=== PATIENT | female | born 1950 | race Two or more races ===

== ENCOUNTER 2018-10-25 10:00 | Outpatient (CLI) | payer OTHER | END 2018-10-25 16:19 | disposition home or self-care (01) | LOC: MAMO-SONO 10:00 | DX: Z12.31 Encounter for screening mammogram for malignant neoplasm of breast (principal); Z87.898 Personal history of other specified conditions; E04.1 Nontoxic single thyroid nodule ==

== ENCOUNTER 2018-10-25 10:42 | Outpatient (CLI) | payer OTHER | END 2018-10-25 10:45 | disposition home or self-care (01) | LOC: NUCLEAR 10:42 | DX: M81.0 Age-related osteoporosis without current pathological fracture (principal); M85.80 Other specified disorders of bone density and structure, unspecified site ==

== ENCOUNTER 2021-03-26 10:13 | Outpatient (CLI) | payer OTHER | END 2021-03-26 10:30 | disposition home or self-care (01) | LOC: MAMO-SONO 10:13 | PROVIDERS: ATTEND General Practice | DX: R92.1 Mammographic calcification found on diagnostic imaging of breast (principal); Z12.31 Encounter for screening mammogram for malignant neoplasm of breast; N64.4 Mastodynia ==

== ENCOUNTER 2023-08-19 12:54 | Outpatient (CLI) | payer OTHER | END 2023-08-19 12:56 | disposition home or self-care (01) | LOC: NUCLEAR 12:54 | PROVIDERS: ATTEND General Practice | DX: M81.0 Age-related osteoporosis without current pathological fracture (principal); S82.042D Displaced comminuted fracture of left patella, subsequent encounter for closed fracture with routine healing ==

== ENCOUNTER 2023-10-07 07:25 | Outpatient (CLI) | payer OTHER | END 2023-10-07 07:26 | disposition home or self-care (01) | LOC: RAD 07:25 | PROVIDERS: ATTEND Orthopaedic Surgery | DX: S82.042D Displaced comminuted fracture of left patella, subsequent encounter for closed fracture with routine healing (principal) ==

== ENCOUNTER → 2023-10-07 11:07 | Outpatient (CLI) | payer OTHER ==
[2023-10-07 12:02] LABS: ALBUMIN 4.3 gm/dL (3.4-5.0); BILIRUBIN TOTAL 0.49 mg/dL (0.3-1.2); CALCIUM 10.5 mg/dL (8.5-10.1); CREATININE SERUM 0.62 mg/dL (0.55-1.02); GFR 94.09; GLOBULINA 3.2 G/DL (2.4-3.5); MAGNESIUM 2.3 mg/dL (1.8-2.4); PHOSPHOROUS 3.8 mg/dL (2.5-4.9); POTASSIUM 4.5 mEq/L (3.5-5.1); TOTAL PROTEIN 7.5 gm/dL (6.4-8.2)
== END | disposition home or self-care (01) ==
LOC: LAB 11:07
PROVIDERS: ATTEND Orthopaedic Surgery
DX: E55.9 Vitamin D deficiency, unspecified (principal); M85.9 Disorder of bone density and structure, unspecified; E56.1 Deficiency of vitamin K; E21.3 Hyperparathyroidism, unspecified; E88.89 Other specified metabolic disorders; M81.8 Other osteoporosis without current pathological fracture

== ENCOUNTER 2024-01-04 07:30 | Outpatient (CLI) | payer OTHER | END 2024-01-04 07:44 | disposition home or self-care (01) | LOC: TOM 07:30 | PROVIDERS: ATTEND Internal Medicine Gastroenterology | DX: R10.9 Unspecified abdominal pain (principal) ==